=== PATIENT | female | born 1955 | race Caucasian/White ===

== ENCOUNTER → 2024-10-29 08:25 | Outpatient (REF) | payer OTHER, SELFPAY | LOC: RAD 08:25 | PROVIDERS: ATTENDING PHYSICIAN Family Medicine | DX: E66.01 Morbid (severe) obesity due to excess calories (principal); M25.511 Pain in right shoulder | CPT/HCPCS: 73030 ==

== ENCOUNTER → 2024-11-12 09:55 | Outpatient (REF) | payer OTHER, SELFPAY | LOC: HWRAD 09:55 | PROVIDERS: ATTENDING PHYSICIAN Physician Assistant | DX: F17.210 Nicotine dependence, cigarettes, uncomplicated (principal) | CPT/HCPCS: 71271 ==

== ENCOUNTER → 2024-11-28 09:25 | Outpatient (REF) | payer OTHER, SELFPAY | LOC: WDC 09:25 | PROVIDERS: ATTENDING PHYSICIAN Physician Assistant | DX: F17.200 Nicotine dependence, unspecified, uncomplicated (principal); Z13.820 Encounter for screening for osteoporosis; Z12.31 Encounter for screening mammogram for malignant neoplasm of breast | CPT/HCPCS: 77063; 77067; 77080 ==